=== PATIENT | male | born 1985 | race Caucasian/White ===

== ENCOUNTER 2024-08-31 12:44 | Outpatient (CLI) | payer OTHER, SELFPAY ==
--- NOTE | 2024-08-31 14:00 | NEURO_ITS ---
Impression: # Non diabetic complaints of numbness of his hands more so at night. ? # Mild evolving Carpal Tunnel Syndrome. ? # No ulnar neuropathy. ? # Normal needle/EMG exam. Nerve Conduction Studies Anti Sensory Summary Table ?Stim Site NR Peak (ms) P-T Amp (?V) Site1 Site2 Delta-P (ms) Dist (cm) Hardik (m/s) Left Median Anti Sensory (2-3nd Digit) Wrist ? 3.3 47.6 Wrist 2-3nd Digit 3.3 14.0 42 Wrist ? 2.9 33.4 Wrist 2-3nd Digit 3.3 14.0 42 Right Median Anti Sensory (2-3nd Digit) Wrist ? 3.0 28.0 Wrist 2-3nd Digit 3.0 14.0 47 Wrist ? 2.9 28.3 Wrist 2-3nd Digit 3.0 14.0 47 Left Radial Anti Sensory (Base 1st Digit) Wrist ? 2.3 23.6 Wrist Base 1st Digit 2.3 0.0 Right Radial Anti Sensory (Base 1st Digit) Wrist ? 2.2 21.1 Wrist Base 1st Digit 2.2 0.0 Left Ulnar Anti Sensory (5th Digit) Wrist ? 2.6 36.1 Wrist 5th Digit 2.6 14.0 54 Right Ulnar Anti Sensory (5th Digit) Wrist ? 2.5 48.4 Wrist 5th Digit 2.5 14.0 56 Motor Summary Table ?Stim Site NR Onset (ms) O-P Amp (mV) Site1 Site2 Delta-0 (ms) Dist (cm) Hardik (m/s) Left Median Motor (Abd Poll Brev) Wrist ? 3.8 3.3 Elbow Wrist 4.7 27.0 57 Elbow ? 8.5 4.6 ELB/ADM Wrist 0.4 0.0 Right Median Motor (Abd Poll Brev) Wrist ? 4.2 3.1 Elbow Wrist 4.5 27.0 60 Elbow ? 8.7 2.9 Left Ulnar Motor (Abd Dig Minimi) Wrist ? 2.3 6.7 A Elbow Wrist 5.1 31.0 61 A Elbow ? 7.4 6.0 Right Ulnar Motor (Abd Dig Minimi) Wrist ? 2.5 7.0 A Elbow Wrist 4.8 28.0 58 A Elbow ? 7.3 6.0 B Elbow Wrist 3.3 19.0 58 B Elbow ? 5.8 4.5 F Wave Studies ?NR F-Lat (ms) L-R F-Lat (ms) Left Median (Mrkrs) (Abd Poll Brev) ? 27.86 0.06 Right Median (Mrkrs) (Abd Poll Brev) ? 27.92 0.06 Left Ulnar (Mrkrs) (Abd Dig Min) ? 26.33 1.00 Right Ulnar (Mrkrs) (Abd Dig Min) ? 27.33 1.00 EMG ?Side Muscle Nerve Root Ins Act Fibs Amp Dur Recrt Comment Right 1stDorInt Ulnar C8-T1 Nml Nml Nml Nml Nml Right Ext Indicis Radial (Post Int) C7-8 Nml Nml Nml Nml Nml Right Ext Digitorum Radial (Post Int) C7-8 Nml Nml Nml Nml Nml Right BrachioRad Radial C5-6 Nml Nml Nml Nml Nml Right PronatorTeres Median C6-7 Nml Nml Nml Nml Nml Right Abd Poll Brev Median C8-T1 Nml Nml Nml Nml Nml Right ABD Dig Min Ulnar C8-T1 Nml Nml Nml Nml Nml Left 1stDorInt Ulnar C8-T1 Nml Nml Nml Nml Nml Left Ext Indicis Radial (Post Int) C7-8 Nml Nml Nml Nml Nml Left Ext Digitorum Radial (Post Int) C7-8 Nml Nml Nml Nml Nml Left BrachioRad Radial C5-6 Nml Nml Nml Nml Nml Left PronatorTeres Median C6-7 Nml Nml Nml Nml Nml Left Abd Poll Brev Median C8-T1 Nml Nml Nml Nml Nml Left ABD Dig Min Ulnar C8-T1 Nml Nml Nml Nml Nml MTDD
== END 2024-08-31 12:45 | disposition home or self-care (01) ==
PROVIDERS: Visit Provider Orthopaedic Surgery
DX: M25.521 Pain in right elbow (principal); M25.522 Pain in left elbow; G56.03 Carpal tunnel syndrome, bilateral upper limbs
CPT/HCPCS: 95886; 95911